=== PATIENT | male | born 1935 | race Asian ===

== ENCOUNTER → 2016-09-09 | Outpatient (CLI) | payer OTHER ==
--- NOTE | 2016-09-09 15:59 | MR ---
MRI of the Lumbar Spine (Without Contrast) 1041 Hours Clinical Indications: Back pain. Radiculopathy. M54.16. Technique: Sagittal and axial T1 and T2 and sagittal STIR MR sequences of the lumbar spine without contrast. Axial imaging from T10 through S1. Findings: Lumbar vertebral bodies are of normal height without compression fractures. Conus medulla ris appears normal and ends at moderate thoracolumbar dextroscoliosis. T10-T11: Severe degenerative disk disease with severe disk space narrowing, degenerative retrolisthes is, circumferential disk bulge and osteophytes, and mild bilateral facet arthropathy resulting in mil d central canal stenosis and at least moderate bilateral neural foraminal stenosis only partially vis ualized. T11-T12: Severe degenerative disk disease with moderate loss of disk height, degenerative anterolisth esis, and severe bilateral facet arthropathy resulting in moderate central canal stenosis and moderat e bilateral neural foraminal stenosis, right worse than left. T12-L1: Moderate degenerative disk disease with circumferential disk bulge and osteophytes and mild b ilateral facet arthropathy resulting in degenerative grade 1 retrolisthesis, mild central canal steno sis, and moderate bilateral neural foraminal stenosis. L1-L2: Moderate degenerative disk disease with ventral osteophytes and mild bilateral facet arthropat hy resulting in mild to moderate left neural foraminal stenosis without central canal stenosis or rig ht neural foraminal stenosis. L2-L3: Moderate degenerative disk disease with circumferential disk bulge and osteophytes asymmetrica lly more prominent toward the left, possibly prior left laminectomy, and mild right facet arthropathy resulting in mild central canal stenosis, moderate to severe left neural foraminal stenosis, and mil d to moderate right neural foraminal stenosis. L3-L4: Moderate degenerative disk disease with circumferential disk bulge and osteophytes, severe rig ht facet arthropathy, moderate left facet arthropathy, and posterior interspinous hardware resulting in moderate central canal stenosis, right lateral recess stenosis, moderate to severe right neural fo raminal stenosis, and mild to moderate left neural foraminal stenosis. L4-L5: Moderate degenerative disk disease and circumferential disk bulge and osteophytes, previous le ft laminectomy, and mild bilateral facet arthropathy resulting in severe right neural foraminal steno sis and mild left neural foraminal stenosis. No central canal stenosis. L5-S1: Mild degenerative disk disease with circumferential disk bulge and osteophytes and moderate bi lateral facet arthropathy with posterior interspinous hardware resulting in moderate to severe bilate ral neural foraminal stenosis without central canal stenosis. Impressions 1. Multilevel moderate degenerative disk disease with disk bulges and facet arthropathy, dextroscolio sis, from T10-T11 through L5-S1 resulting in mild to moderate central canal stenosis, worse at T10-T1 1, L3-L4, and multilevel moderate to severe bilateral neural foraminal stenosis, worse on the right a t L3-L4, L4-L5, and L5-S1, especially L4-L5, and on the left at L2-L3. 2. Please see above findings at specific disk levels.
== END ==
LOC: FIMAGING 08:59
PROVIDERS: ATTEND Physician Assistant Medical
DX: M51.36 Other intervertebral disc degeneration, lumbar region (principal); M51.34 Other intervertebral disc degeneration, thoracic region; M51.35 Other intervertebral disc degeneration, thoracolumbar region; M51.26 Other intervertebral disc displacement, lumbar region; M51.24 Other intervertebral disc displacement, thoracic region; M51.25 Other intervertebral disc displacement, thoracolumbar region; M48.06 Spinal stenosis, lumbar region; M48.04 Spinal stenosis, thoracic region; M99.72 Connective tissue and disc stenosis of intervertebral foramina of thoracic region; M99.73 Connective tissue and disc stenosis of intervertebral foramina of lumbar region; M41.85 Other forms of scoliosis, thoracolumbar region

== ENCOUNTER → 2016-09-14 | Outpatient (CLI) | payer OTHER | LOC: BHFA 09:15 | PROVIDERS: ATTEND Internal Medicine Cardiovascular Disease | DX: I48.91 Unspecified atrial fibrillation (principal) ==

== ENCOUNTER → 2016-09-28 | Outpatient (CLI) | payer OTHER | LOC: BHFA 09:00 | PROVIDERS: ATTEND Internal Medicine Cardiovascular Disease | DX: R06.02 Shortness of breath (principal) ==

== ENCOUNTER → 2017-01-02 | Outpatient (CLI) | payer OTHER | LOC: FIMAGING 11:23 → EDSTATUS 11:25 | PROVIDERS: ATTEND Internal Medicine Cardiovascular Disease | DX: Z09 Encounter for follow-up examination after completed treatment for conditions other than malignant neoplasm (principal); Z95.0 Presence of cardiac pacemaker ==

== ENCOUNTER → 2017-03-22 | Outpatient (CLI) | payer OTHER | LOC: FIMAGING 12:32 | PROVIDERS: ATTEND Internal Medicine Hematology & Oncology | DX: N28.1 Cyst of kidney, acquired (principal); N39.0 Urinary tract infection, site not specified ==

== ENCOUNTER → 2017-04-20 | Outpatient (CLI) | payer OTHER | LOC: BHFA 14:00 | PROVIDERS: ATTEND Internal Medicine Cardiovascular Disease | DX: I48.91 Unspecified atrial fibrillation (principal) ==

== ENCOUNTER → 2017-08-16 | Outpatient (CLI) | payer OTHER | LOC: BHFA 08:30 | PROVIDERS: ATTEND Internal Medicine Cardiovascular Disease | DX: Z51.11 Encounter for antineoplastic chemotherapy (principal) ==

== ENCOUNTER 2017-08-17 14:23 | Inpatient (IN) | payer OTHER ==
--- NOTE | 2017-08-17 15:56 | EDPHY ---
H & P Time Seen by Provider: 08/17/17 15:56 HPI/ROS: Chief complaint. Cardiac issues HPI. Patient is an 82-year-old male with history of [place] strong moves lymphoma with exertional shortness of breath for the last 4-5 days. He had last chemotherapy 2 days ago and there is some evidence for tumor lysis syndrome. However the patient has an elevated BNP that is new as well as a new heart murmur. He had an echo yesterday but we do not know the results of that. Denies fever. However exertional shortness of breath and 89% saturation on room air. No chest discomfort. No unusual leg pain or swelling. No fever or cough. No similar symptoms previously. Patient has now been on Lasix the last 2 days. ROS Constitutional. no fever/chills, no weakness Eyes. no problems with vision ENT. no sore throat, no nasal drainage Cardiovascular. no chest pain Respiratory. Exertional shortness of breath Abdominal. no abdominal pain, no nausea/vomiting, no diarrhea . no problems urinating MS. no calf pain/swelling, no neck/back pain, no joint pain Skin. no rash Lymph. no swollen glands Neuro. no headache, no dizziness, no difficulty walking or with speech Past Medical/Surgical History: Past medical history is significant for non-Hodgkin's lymphoma, sciatica,, atrial fibrillation, chronic renal insufficiency, rheumatoid arthritis, [place] strong move mac grow globular anemia, pacer, rectal cancer Social History: , nonsmoker, no alcohol Smoking Status: Former smoker Physical Exam: General Appearance: Alert well-developed male mild distress vital signs significant for O2 saturation 91% on room air Eyes: Pupils equal and round no pallor or injection. ENT, Mouth: Mucous membranes are moist. Respiratory: Rales in the lung bases Cardiovascular: Regular rate and rhythm with 1/6 systolic decrescendo murmur Gastrointestinal: Abdomen is soft and nontender, no masses, bowel sounds normal. Neurological: Awake and alert, sensory and motor exams grossly normal. Skin: Warm and dry, no rashes. Musculoskeletal: Neck is supple nontender. Extremities symmetrical, full range of motion. Psychiatric: Patient is oriented X 3, there is no agitation. Constitutional: Initial Vital Signs Temperature (C) 36.9 C 08/17/17 14:30 Heart Rate 76 08/17/17 14:30 Respiratory Rate 20 08/17/17 14:30 Blood Pressure 125/67 H 08/17/17 14:30 O2 Sat (%) 91 L 08/17/17 14:30 O2 Delivery Mode Room Air Allergies/Adverse Reactions: sulfacetamide [From Sulfamide] Allergy (Verified 08/17/17 14:28) Home Medications: Medication Instructions Recorded Aspirin [Aspirin 81mg (*)] 81 mg PO HS 04/01/13 Ranitidine HCl [Ranitidine HCl 150 150 mg PO BID PRN 04/01/13 mg] Diphenoxylate HCl/Atrop Sulf 1 tab PO QID PRN 11/23/13 [Lomotil Tab (*)] Ferrous Sulfate [Ferrous Sulf 325 325 mg PO DAILY 11/23/13 MG (*)] Hydrocodone/APAP 5/325 [[place] 1 tab PO Q6 PRN 11/23/13 5/325 (*)] Loperamide HCl [Imodium 2 mg (*)] 2 mg PO PRN PRN 11/23/13 Simvastatin [Zocor 10 mg] 10 mg PO HS 11/23/13 Testosterone Cypionate 200 mg IM Q14D@09 11/23/13 Cholecalciferol (Vitamin D3) 5,000 unit PO DAILY 07/07/15 [Vitamin D3] Temazepam [Restoril 15 MG (*)] 15 mg PO HS PRN 07/07/15 Rivaroxaban [Xarelto 15mg (*)] 15 mg PO DAILY #30 tab 07/09/15 Sotalol HCl [Betapace 80 MG (*)] 120 mg PO BID #60 tab 07/09/15 Allopurinol 08/17/17 Lasix 08/17/17 Medical Decision Making - Diagnostics EKG Interpretation: EKG interpreted by me shows an atrial paced rhythm with normal axis. QRS shows some inferior lead T-wave inversion. No significant ST elevation or depression. The rate is 72 Imaging Results: Imaging Impressions Chest X-Ray 08/17/17 16:23 Impression: 1. Mild airways disease/bronchitis. 2. Borderline cardiomegaly unchanged. No failure or effusion. One-view chest x-ray consistent with mild CHF and airway disease. Procedures: IV normal saline. Review of records. Calling Cardiology to find out echo results from yesterday I consulted Cardiology and got the results of the echo from yesterday which shows normal global left ventricular systolic function with an EF of 61%. Aortic fell, mitral valve are normal. no pericardial effusion ED Course/Re-evaluation: Re-evaluation 5:25 p.m.. Patient, his , and I discussed imaging and lab results. We discussed treatment plan including recommendation for admission. They expressed understanding and agreed I consulted and discussed case Dr. Stinson, hospitalist who agrees to the admission I consulted discussed case with Cardiology and reviewed the ultrasound Differential Diagnosis: Patient has exertional dyspnea and evidence for CHF. Unlikely the patient has pulmonary embolus as he is on Xarelto with an elevated INR. I have also considered pneumonia. Apparently new onset heart murmur but echo shows normal mitral and aortic valves. No evidence for pericarditis or pericardial effusion - Data Points Laboratory Results: Laboratory Results 08/17/17 16:30 08/17/17 16:30 08/17/17 08/17/17 08/17/17 16:30 16:30 16:30 WBC 4.54 10^3/uL 10^3/uL (3.80-9.50) RBC 4.00 10^6/uL L 10^6/uL (4.40-6.38) Hgb 10.3 g/dL L g/dL (13.7-17.5) Hct 32.7 % L % (40.0-51.0) MCV 81.8 fL fL (81.5-99.8) MCH 25.8 pg L pg (27.9-34.1) MCHC 31.5 g/dL L g/dL (32.4-36.7) RDW 16.8 % H % (11.5-15.2) Plt Count 197 10^3/uL 10^3/uL (150-400) MPV 8.8 fL fL (8.7-11.7) Neut % (Auto) 74.3 % H % (39.3-74.2) Lymph % (Auto) 11.9 % L % (15.0-45.0) Gage % (Auto) 11.0 % % (4.5-13.0) Eos % (Auto) 2.0 % % (0.6-7.6) Baso % (Auto) 0.4 % % (0.3-1.7) Nucleat RBC Rel Count 0.0 % % (0.0-0.2) Absolute Neuts (auto) 3.37 10^3/uL 10^3/uL (1.70-6.50) Absolute Lymphs (auto) 0.54 10^3/uL L 10^3/uL (1.00-3.00) Absolute Monos (auto) 0.50 10^3/uL 10^3/uL (0.30-0.80) Absolute Eos (auto) 0.09 10^3/uL 10^3/uL (0.03-0.40) Absolute Basos (auto) 0.02 10^3/uL 10^3/uL (0.02-0.10) Absolute Nucleated RBC 0.00 10^3/uL 10^3/uL (0-0.01) Immature Gran % 0.4 % % (0.0-1.1) Immature Gran # 0.02 10^3/uL 10^3/uL (0.00-0.10) PT 44.4 SEC H SEC (12.0-15.0) INR 4.80 H (0.83-1.16) Sodium 140 mEq/L mEq/L (134-144) Potassium 5.1 mEq/L mEq/L (3.5-5.2) Chloride 108 mEq/L mEq/L (97-110) Carbon Dioxide 19 mEq/l L mEq/l (22-31) Anion Gap 13 mEq/L mEq/L (8-16) BUN 55 mg/dL H mg/dL (7-23) Creatinine 2.1 mg/dL H mg/dL (0.7-1.3) Estimated GFR 30 Glucose 113 mg/dL H mg/dL (70-100) Calcium 8.3 mg/dL L mg/dL (8.5-10.4) Troponin I 0.030 ng/mL ng/mL (0.000-0.034) NT-Pro-B Natriuret Pep 6770 pg/mL H pg/mL (0-450) Departure - Departure Disposition: [facility] Inpatient Acute Clinical Impression: Dyspnea Qualifiers: Dyspnea type: dyspnea on exertion Qualified Code(s): R06.09 - Other forms of dyspnea Condition: Fair Referrals: Patient,NotPresent [Primary Care Provider] - As per Instructions
--- NOTE | 2017-08-17 16:39 | CPEKG ---
Heart Rate: 72 RR Interval: 833 P-R Interval: 236 QRSD Interval: 84 QT Interval: 428 QTC Interval: 469 QRS [place]: 38 T Wave [place]: -46 EKG Severity - ABNORMAL ECG - EKG Impression: ATRIAL-PACED RHYTHM EKG Impression: BORDERLINE T ABNORMALITIES, INFERIOR LEADS Electronically Signed By: Mumtaz Hamilton 17-Aug-2017 20:54:45
[2017-08-17 16:41] LABS: % IMMATURE GRANULYOCYTES 0.4 % (0.0-1.1); ABSOLUTE IMMATURE GRANULOCYTES 0.02 10^3/uL (0.00-0.10); ADD DIFF? NO; ADD MORPH? NO; ADD SCAN? NO; ATYPICAL LYMPHOCYTE FLAG 0 (0-99); FRAGMENT RBC FLAG 60 (0-99); HEMATOCRIT 32.7 % (40.0-51.0); HEMOGLOBIN 10.3 g/dL (13.7-17.5); LEFT SHIFT FLG 0 (0-99); LIPEMIA HEMOLYSIS FLAG 80 (0-99); MEAN CELL HEMOGLOBIN 25.8 pg (27.9-34.1); MEAN CELL HEMOGLOBIN CONCENTR. 31.5 g/dL (32.4-36.7); MEAN CELL VOLUME 81.8 fL (81.5-99.8); MEAN PLATELET VOLUME 8.8 fL (8.7-11.7); PLATELET CLUMPS FLAG 10 (0-99); PLATELET COUNT 197 10^3/uL (150-400); RED CELL DISTRIBUTION WIDTH 16.8 % (11.5-15.2)
[2017-08-17 16:58] LABS: INR 4.8 (0.83-1.16); PROTIME(PATIENT) 44.4 SEC (12.0-15.0)
[2017-08-17 17:13] LABS: ANION GAP 13 mEq/L (8-16); CALCIUM 8.3 mg/dL (8.5-10.4); CARBON DIOXIDE 19 mEq/l (22-31); CHLORIDE 108 mEq/L (97-110); CREATININE 2.1 mg/dL (0.7-1.3); GLOMERULAR FILTRATION RATE 30; GLUCOSE 113 mg/dL (70-100); POTASSIUM 5.1 mEq/L (3.5-5.2); SODIUM 140 mEq/L (134-144)
[2017-08-17] MEDS ORDERED: ACETAMINOPHEN 325 MG TAB PO PRN (17:36)
[2017-08-17] MEDS ORDERED: ONDANSETRON 4 MG/2 ML VIAL IVP PRN (17:36)
[2017-08-17] MEDS ORDERED: ONDANSETRON DISINTEGRATING 4 MG TAB PO PRN (17:36)
[2017-08-17] MEDS ORDERED: NS 1,000 ML IV SCH (19:15)
[2017-08-17] MEDS ORDERED: ALBUTEROL 200 PUFFS/18 GM MDI IH PRN (19:20)
[2017-08-17] MEDS ORDERED: HYDROCODONE/APAP 5/325 TAB PO PRN (19:20)
--- NOTE | 2017-08-17 19:58 | GHP ---
[f rep st] HISTORY AND PHYSICAL DATE OF ADMISSION: 08/17/2017 CHIEF COMPLAINT: Dyspnea. HISTORY OF PRESENT ILLNESS: An 82-year-old male with history of Waldenstrom lymphoma, last chemo Monday, Monday; atrial fibrillation, on anticoagulation, CKD, who presents from Oncology Clinic with dyspnea. He has noticed these symptoms for the past 2 weeks but worse over the last few days. This occurs only with walking. He had a cold in July and was treated with antibiotics at that time. The cough is persistent. He states that he is achy and more fatigued. He did have significant diarrhea yesterday and today to the point where he had to wear Depends. No headaches. No dysuria. He was started on Lasix 20 mg daily yesterday. He had an echocardiogram done on 08/16/2017 that was normal. No evidence of effusion. Normal LV function. His oxygen sats dropped to 87% on room air. Denies any chest pain. Exercises a couple times a week without any chest pain or shortness of breath up until the last couple of weeks. REVIEW OF SYSTEMS: I completed a 10-point review of systems, negative except as noted in HPI. PAST MEDICAL HISTORY: 1. 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 2. Atrial fibrillation on Coumadin. 3. History of tachy-phoebe syndrome status post pacemaker. 4. GERD. 5. CKD. Baseline creatinine is 1.8-1.9. 6. History of non-Hodgkin's lymphoma. PAST SURGICAL HISTORY: Shoulder surgery, TURP x2, laminectomy x2, right inguinal hernia repair, partial colectomy. 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 Lives here in [place] with his . Occasional wine. Smoked remotely 10 years, 1 pack a day. FAMILY HISTORY: Father in an accident. Mother with multiple myeloma. ALLERGIES: Sulfa. HOME MEDICATIONS: Restasis eyedrops, albuterol 1-2 puffs q.4 hours p.r.n., Synthroid 50 mcg daily. Dapsone 100 mg daily, acyclovir 400 mg twice daily, Coumadin 1.25 mg Monday, Monday, Monday, 2.5 every other day. Sotalol 80 mg twice daily, simvastatin 10 at bedtime, ranitidine 150 twice daily p.r.n., loperamide p.r.n., [place] as needed, Restoril, iron, Lomotil, vitamin D3, aspirin , Lasix 20 mg daily. Allopurinol 100 mg daily. PHYSICAL EXAMINATION: VITAL SIGNS: Temperature 36.9, blood pressure 125/67, heart rate 76, respirations 20, 91% on room air, 99 on 2 L. GENERAL: Well- appearing male, lying in bed, mildly tired. HEENT: PERRLA, dry mucous membranes. CV: Regular rate and rhythm, soft murmur right lower sternal border. CXR is personally reviewed by me. Pacemaker. No effusion or opacity. EKG: personally reviewed by me, atrial paced. LABS: Sodium 140, potassium 5.1, chloride 108, carbon dioxide 19, BUN 55, creatinine 2.1, glucose 113, calcium 8.3. Troponin 0.03. BNP is 6770, up from 1979 on 08/14/2017. INR is 4, PT is 44. WBC 4, hemoglobin 10, hematocrit 32, platelets 197. ASSESSMENT AND PLAN: 1. Dyspnea: new over the last 2 weeks. Actually appears dry on exam. Normal echo at [facility] yesterday. No evidence of ischemia on EKG or troponin. Will repeat both these, monitor on telemetry; repeat troponin. No evidence of pneumonia, but will check a viral PCR given immunosuppression. Consider pulmonary embolism, but not tachycardia and is supratherapeutic on his Coumadin. Can also consider dyspnea as an anginal equivalent. Per patient report, he had a treadmill stress test within the last few months. I have been unable to locate this in [place]. Will contact [facility] in morning to confirm. If not done, then would consider stress if other evaluation negative. 2. Atrial fibrillation: Rate controlled on sotalol. Hold Coumadin with a supratherapeutic INR. 3. History of tachy-phoebe syndrome, pacemaker. 4. Chronic kidney disease: Creatinine is up to 2.1 from 1.9. Dry on exam and h/ o decreased p.o. intake and diarrhea. Give small amount IVFs. Repeat in the morning. 5. Gastroesophageal reflux disease, ranitidine. 6. Diet: Regular. 7. Deep venous thrombosis prophylaxis. He is on Coumadin. DISPOSITION: Patient warrants observation admission given hypoxia, warranting serial labs and possible cardiac evaluation if stress not already done. /[id number]/MODL MTDD
[2017-08-17] MEDS: cycloSPORINE 0.05% 30 DROPERETTE/BOX EACHEYE SCH (20:00)
[2017-08-17] MEDS: SOTALOL HCL 80 MG TAB PO SCH (20:10)
[2017-08-17] MEDS: TEMAZEPAM 15 MG CAP PO PRN (20:11)
[2017-08-17] MEDS: ACYCLOVIR 400 MG TAB PO SCH (20:11)
[2017-08-17] MEDS: PRAVASTATIN SODIUM 20 MG TAB PO SCH (20:11)
[2017-08-17] MEDS: ASPIRIN 81 MG CHEWABLE TAB PO SCH (20:11)
[2017-08-17] MEDS ORDERED: FAMOTIDINE 20 MG TAB PO PRN (21:00)
--- NOTE | 2017-08-18 04:14 | GCON ---
[f rep st] CONSULTATION HEMATOLOGY ONCOLOGY CONSULTATION NOTE REASON FOR CONSULTATION: Patient with history of Waldenstrom macroglobulinemia , admitted with increasing dyspnea, fatigue, hypoxia. HISTORY OF PRESENT ILLNESS: Shahid Jett is a 82-year-old who currently being treated for Waldenstrom macroglobulinemia by Dr. Soto. He was seen in the office today with symptoms of increasing fatigue, dyspnea and hypoxia. The patient was admitted for further evaluation. His oncology history is notable for being diagnosed with a stage II colon cancer in 2005. He was given 12 cycles of full FOLFOX and has had a residual peripheral neuropathy secondary to that. He was then diagnosed with an anal carcinoma and treated with mitomycin, 5-FU and radiation in 2008 and has been free of disease since. He was diagnosed with Waldenstrom macroglobulinemia in June 2008. 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 He has required treatment intermittently for it over the years, primarily with single agent rituximab. He did a short course of ibrutinib in 2014. More recently, due to symptoms of increasing fatigue and new anemia, he was treated for what was thought to be symptomatic to the Waldenstrom's. Bone marrow biopsy in July showed a CD5/CD10 negative clonal B-cell population which was kappa restricted, encompassing 40% of the marrow. There was a clonal plasma cell population as well which was kappa restricted 7% to 8% of the marrow. The marrow was hypercellular at 70%. There was no evidence of amyloid. The PCR on peripheral blood was positive for MYD88 mutation which correlates with the diagnosis of Waldenstrom's. A recent serum viscosity was normal at 1.2. PET CT on August 09 showed enlarging splenomegaly and description of edema in the anterior superior mediastinal fat, right anterior chest wall, right retrocrural space and mesentery, which had some low-level PET uptake of uncertain significance. There was interval development of small bilateral pleural effusions. The patient was started on treatment with rituximab, carfilzomib, with dexamethasone on August 14. He received treatment on the and the . Since receiving treatment, he states he has just felt "horrible. He has been short of breath, extremely weak. He has not been able to do any of his usual exercise. He has baseline renal insufficiency with a creatinine of 1.8. In the office today, he was hypoxic with an O2 sat of 86%. LDH on August 11 was normal, and was elevated today at 860. Uric acid was 9.5 on August 11, and is now 12.1. Creatinine was up to 2.4. A CBC was otherwise unremarkable. Dr. Soto felt he heard a new systolic murmur. The patient had an echocardiogram yesterday and those results are still pending. The patient is admitted for further evaluation of hypoxia, dyspnea, increasing weakness, worsening renal function. PAST MEDICAL HISTORY: Colon cancer per HPI. Anal cancer per HPI. History of atrial fibrillation with pacemaker. 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 PAST SURGICAL HISTORY: Prior laminectomy, TURP, colectomy. FAMILY HISTORY: Noncontributory other than mother dying of multiple myeloma. SOCIAL HISTORY: He is . He has a son from his first marriage. 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 He drinks alcohol occasionally. REVIEW OF SYSTEMS: 10-point review of systems is negative other than HPI. PHYSICAL EXAM: GENERAL: He is a fatigued-appearing elderly male lying comfortably in bed. VITAL SIGNS: Blood pressure is 120/72, pulse 77, respires 15, temp 97.6, O2 sat 86% on room air. HEENT: Pupils are equal. Sclerae anicteric. LUNGS: Clear to auscultation without crackles. HEART: Regular rate with soft systolic murmur. ABDOMEN: Soft, nontender. EXTREMITIES: No edema. LABORATORY DATA: Hemoglobin 10.8, creatinine 2.4, alk phos 221, AST 88, ALT 97 , LDH 860, uric acid 12.1. IMPRESSION: This is an 82-year-old male with a complicated past medical history , currently receiving treatment for what is felt to be progressive Waldenstrom macroglobulinemia. The patient received his first cycle of treatment 3 days ago , and labs suggest that he is experiencing some tumor lysis. This would be unusual for Waldenstrom's. Recent serum viscosity is normal, suggesting that viscosity issues are not contributing to his current symptoms. Some of his symptoms are suggestive also of either congestive heart failure and/or volume overload. I am unclear as to the significance of the description of the recent PET with mediastinal and retrocrural edema. The patient will be admitted to telemetry. Will get the copy of the echocardiogram from yesterday. He will continue on allopurinol and consideration could be given to giving him 1 dose of rasburicase if uric acid continues to rise or renal function worsens. Hyperuricemia may be contributing in part to the renal insufficiency and/or a component of prerenal. Previous bone marrow did not demonstrate any evidence of amyloidosis. We will see if there is any evidence of that on the echocardiogram. SPEP and light chains will be checked as well. Will continue to follow along with you. /[id number]/MODL MTDD
[2017-08-18 05:29] LABS: % IMMATURE GRANULYOCYTES 0.6 % (0.0-1.1); ABSOLUTE IMMATURE GRANULOCYTES 0.03 10^3/uL (0.00-0.10); ADD DIFF? NO; ADD MORPH? NO; ADD SCAN? NO; ATYPICAL LYMPHOCYTE FLAG 50 (0-99); FRAGMENT RBC FLAG 0 (0-99); HEMATOCRIT 31.8 % (40.0-51.0); HEMOGLOBIN 9.5 g/dL (13.7-17.5); LEFT SHIFT FLG 0 (0-99); LIPEMIA HEMOLYSIS FLAG 70 (0-99); MEAN CELL HEMOGLOBIN 24.5 pg (27.9-34.1); MEAN CELL HEMOGLOBIN CONCENTR. 29.9 g/dL (32.4-36.7); MEAN PLATELET VOLUME 9.2 fL (8.7-11.7); PLATELET CLUMPS FLAG 0 (0-99); PLATELET COUNT 155 10^3/uL (150-400); RED BLOOD CELL COUNT 3.88 10^6/uL (4.40-6.38); RED CELL DISTRIBUTION WIDTH 16.9 % (11.5-15.2)
[2017-08-18] MEDS: LEVOTHYROXINE 50 MCG TAB PO SCH (05:33)
[2017-08-18 05:45] LABS: INR 3.88 (0.83-1.16); PROTIME(PATIENT) 37.7 SEC (12.0-15.0)
[2017-08-18 05:48] LABS: ALANINE AMINOTRANSFERASE 94 IU/L (21-72); ALBUMIN 2.9 g/dL (3.5-5.0); ALKALINE PHOSPHATASE 217 IU/L (38-126); ANION GAP 9 mEq/L (8-16); ASPARTATE AMINOTRANSFERASE 64 IU/L (17-59); BILIRUBIN,TOTAL 0.5 mg/dL (0.1-1.4); CARBON DIOXIDE 24 mEq/l (22-31); CHLORIDE 106 mEq/L (97-110); CREATININE 1.9 mg/dL (0.7-1.3); GLOMERULAR FILTRATION RATE 34; GLUCOSE 88 mg/dL (70-100); LACTATE DEHYDROGENASE 701 IU/L (313-618); POTASSIUM 4.8 mEq/L (3.5-5.2); SODIUM 139 mEq/L (134-144); TOTAL PROTEIN 7.2 g/dL (6.3-8.2); URIC ACID 11.3 mg/dL (3.5-8.5)
[2017-08-18] MEDS: ACYCLOVIR 400 MG TAB PO SCH ×2 (08:49→21:15)
[2017-08-18] MEDS: ALLOPURINOL 100 MG TAB PO SCH (08:49)
[2017-08-18] MEDS: SOTALOL HCL 80 MG TAB PO SCH ×2 (08:50→21:15)
[2017-08-18] MEDS: DAPSONE 100 MG TAB PO SCH (08:50)
[2017-08-18] MEDS: CHOLECALCIFEROL VIT D3 2,000 UNITS TAB/CAP PO SCH (08:50)
[2017-08-18] MEDS: FERROUS SULFATE 325 MG TAB PO SCH (08:50)
[2017-08-18] MEDS: cycloSPORINE 0.05% 30 DROPERETTE/BOX EACHEYE SCH ×2 (09:52→22:02)
--- NOTE | 2017-08-18 10:02 | HOSPPROG ---
Hospitalist Progress Note Assessment/Plan: Dyspnea with mild hypoxemia - On 2 LPM. Note BNP elevated >6K, most recently was <2K, though difficult to interpret with CKD and he does not appear volume overloaded. Discussed with cards, had limited echo recently. Last stress test was exercise treadmill in 09/2016, neg for ischemia. Trop neg x2, non-specific T wave changes on EKG (personally reviewed and interpreted). Baseline weight ~ 70kg. Also note airway dz/bronchitis picture on CXR with recent URI. Resp path panel neg. Unclear if this could be anginal equivalent or residual URI / bronchitis picture. -trial nebs -complete echo today - right heart failure, seems new -considered PE with new RHF, though seems less likely with anti-coagulated status, can't have CTPA with elevated Cr. Will check LE U/S. -cards to consult Pulmonary hypertension - new since 09/2016 echo, RSVP 82. Potential etiologies include underlying lung dz (?h/o restrictive dz on PFT's). Doubt underlying thromboembolic dz with supratherapeutic INR and neg LE u/s. Less likely cause could be a myeloproliferative disorder. With his h/o lymphoma, will d/w pulm. -will do bedside spirometry -consider pulm consult depending on bedside PFT results CKD - Baseline Cr 1.6-1.8, now 2.1 (trending down). Elevated LFT's - unclear etiology, ?hypoperfusion with new right HF. -send hepatitis panel -trend lft's A fib - Rate controlled on Sotalol. INR supratherapeutic. -hold coumadin, pharmacy to dose going forward Tachy/phoebe syndrome s/p pacer Waldenstrom lymphoma with TLS - recent chemo and elevated uric acid noted, trending down -cont allopurinol -check phos -oncology following Full code DVT PPLX - high risk, JESSICA Dispo - cont inpt Subjective: Pt feels fine. Has had some episodes of SOB, but not particulary SOB at this time. Denies CP. No fevers. No cough. No LE edema. Objective: Vital Signs Temp Pulse Resp BP Pulse Ox 36.8 C 74 16 106/62 94 08/18/17 08:05 08/18/17 08:50 08/18/17 08:05 08/18/17 08:05 08/18/17 08:05 Microbiology 08/17/17 20:35 Respiratory Panel (PCR) - Final Nasal, Sinus - Swab No Organism Detected Laboratory Results 08/18/17 04:11 08/18/17 04:11 08/17/17 08/18/17 08/19/17 05:59 05:59 05:59 Intake Total 400 Balance 400 PT 37.7 SEC (12.0-15.0) H 08/18/17 04:11 INR 3.88 (0.83-1.16) H 08/18/17 04:11 - Physical Exam Constitutional: no apparent distress Eyes: PERRL Ears, Nose, Mouth, Throat: moist mucous membranes Cardiovascular: regular rate and rhythym Respiratory: no respiratory distress, clear to auscultation Gastrointestinal: normoactive bowel sounds, soft, non-tender abdomen Skin: warm Musculoskeletal: full muscle strength Neurologic: AAOx3 Psychiatric: interacting appropriately ICD10 Worksheet Patient Problems: Problems Problem Status Onset Dyspnea Acute Anxiety Acute Arrhythmia, ok Acute Atrial fibrillation and flutter Acute CHF (congestive heart failure) Acute Hypoxia Acute Pulmonary edema Acute Chronic kidney disease (CKD) stage G3a/A1, moderately decreased glomerular filtration rate (GFR) between 45-59 mL/min/1.73 square meter and albuminuria creatinine ratio less than 30 mg/g Chronic Malignant lymphoma, 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
[2017-08-18] MEDS: IPRATROPIUM/ALBUTEROL 3 ML DEYVIAL IH SCH ×4 (11:27→22:39)
--- NOTE | 2017-08-18 12:29 | PDMN ---
Medical Necessity Medical necessity: est los>2mn for dyspnea w/hypoxia, CKD, elevated lft's, supratherapeutic INR; admit for serial labs, supplemental O2, cardiology and onc consults; comorbid lymphoma w/recent chemo, afib, CKD; per order 08/17/17 and confirmation of status per progress note 08/18/17
--- NOTE | 2017-08-18 15:03 | ECHO ---
[email or web address] [address] [address] Main: [phone] Fax: Transthoracic Echocardiogram Name: IESHA JEAN-BAPTISTE MR#: [id number] Study Date: 08/18/2017 Study Time: 10:38 AM Date of : 1935 Age: 82 year(s) Height: ( ) Weight: ( ) BSA: Gender: Male Examination: Echo Indication: Cardiac: dyspnea, acute heart failure Image Quality: Adequate Contrast: Requested by: Sarika Lucia BP: 106 mmHg/62 mmHg Heart Rate: Rhythm: Normal sinus rhythm Indication: Cardiac: dyspnea, acute heart failure Procedure 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 Normal global systolic LV function. EF is 72 %. No regional wall motion abnormality. Mildly dilated right ventricle. Moderately reduced RV function. There is a pacemaker lead noted in the right ventricle. The right atrium is moderately dilated. Mild mitral valve regurgitation is present. The aortic valve is tri-leaflet. Mild aortic cusp calcification is noted. Moderate to severe tricuspid valve regurgitation. Right ventricular systolic pressure measures 82mmHg. The pulmonary artery pressure is severely increased. The IVC is moderately dilated. Measurements: Chambers Valvular Assessment AV/MV Valvular Assessment TV/PV Normal Normal Normal Name Value Range Name Value Range Name Value Range Ao Iliana (MM): 3.0 cm (2.2 cm-3.7 AV Vmax: 1.38 m/s (1 m/s-1.7 TR Vmax: 4.08 mm/s ( - ) cm) m/s) TR PGmax: 67 mmHg ( - ) IVSd (2D): 1.2 cm (0.6 cm-1.1 AV maxP mmHg ( - ) syst. PAP: 82 mmHg ( - ) cm) LVOT Vmax: 0.99 m/s (0.7 m/s-1.1 PV Vmax: 0.66 m/s (0.6 m/s-0.9 LVDd (2D): 4.1 cm (4.2 cm-5.9 m/s) m/s) cm) MV E Vmax: 0.78 m/s ( - ) PV PGmax: 2 mmHg ( - ) LVDs (2D): 2.5 cm (2.1 cm-4 MV A Vmax: 0.58 m/s ( - ) cm) MV E/A: 1.34 ( - ) LVPWd (2D): 1.1 cm (0.6 cm-1 cm) Patient: IESHA JEAN-BAPTISTE Study Date: 08/18/2017 Page 1 of 2 10:38 AM LVEF (BP): 72 % (>=55 %) RVDd(2D): 4.2 cm (1.9 cm-3.8 cmmm) Continued Measurements: Chambers Valvular Assessment AV/MV Valvular Assessment TV/PV Name Value Name Value Name Value LADs Lon.0 cm MV DecTime: 246 m/s CVP (est.): 15 mmHg LA Area: 20.9 cm2 MV E' Septal: 0.06 m/s LA Volume: 69 ml MV E/E' Septal: 12.40 TAPSE: 1.6 cm MV E/E' Lateral: 9.30 RA Area: 23.0 cm2 Additional Vessels Name Value Ao Ascendin.4 cm Findings: Left Ventricle: Normal size left ventricle. Borderline concentric LV hypertrophy. Normal global systolic LV function. EF is 72 %. No regional wall motion abnormality. Normal diastolic LV function. Right Ventricle: Mildly dilated right ventricle. Moderately reduced RV function. There is a pacemaker lead noted in the right ventricle. Left Atrium: The left atrium is normal in size. Right Atrium: The right atrium is moderately dilated. There is a pacemaker lead noted in the right atrium. Mitral Valve: The mitral valve is normal in appearance and function. There is mild thickening of the mitral valve leaflets. No mitral stenosis is present. Mild mitral valve regurgitation is present. Aortic Valve: The aortic valve is normal in appearance and function. The aortic valve is tri-leaflet. Mild aortic cusp calcification is noted. There is no significant aortic valve regurgitation. No aortic valve stenosis is present. Tricuspid Valve: The tricuspid valve is normal in appearance and function. Moderate to severe tricuspid valve regurgitation. Right ventricular systolic pressure measures 82mmHg. The pulmonary artery pressure is severely increased. Pulmonic Valve: The pulmonic valve is normal in appearance and function. Mild pulmonic valve regurgitation is noted. Aorta: The aorta is normal. Normal size aortic root measuring 3.0 cm. Normal size ascending aorta measuring 3.4 cm. IVC: The IVC is moderately dilated. There is less than 50% respiratory excursion. Pericardium: No pericardial effusion. Left side pleural effusion. (No Signature Object) Patient: IESHA JEAN-BAPTISTE Study Date: 08/18/2017 Page 2 of 2 10:38 AM [id number]
[2017-08-18] MEDS: HEPARIN 5,000 UNIT/0.5 ML SYR SC SCH ×2 (15:23→21:13)
--- NOTE | 2017-08-18 15:28 | ASMTCMCOM ---
CM Note CM Note Notes: Chart reviewed. Patient admitted via ED with increasing SOB. He has a murmur and tests are pending. Visited with patient and his . He has a history of lymphoma. Per patient and his they have no needs at this point in time. CM to follow. Date Signed: 08/18/2017 03:28 PM Electronically Signed By:Yenny Garcia RN
--- NOTE | 2017-08-18 16:19 | PDCARCONS ---
Cardiology Consult Reason for Consult: Possible congestive heart failure. Chief Complaint: Shortness of breath. Requesting Physician: Dr. Tiffany Lucia. History of Present Illness: He is 82 years old. He is followed in our cardiology clinic by Dr. Lex Davis. His cardiac history is significant for paroxysmal atrial fibrillation, sick sinus syndrome and previous dual-chamber pacemaker implantation. He is currently treated with a combination of sotalol and is on systemic anticoagulation admitted with a therapeutic INR on Coumadin. 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 Apparently on Monday and Monday he received chemotherapy in the form of a CARD protocol. In discussing this with Oncology it is not thought that this is significantly cardiotoxic. He has been struggling with symptoms of exertional dyspnea now for at least a year. In reviewing his office notes he had complained of shortness of breath and low Nikki of last year. At that time, an MVO2 study was ordered. In reviewing that study his peak oxygen consumption was 18 with a comment regarding his pulmonary function testing that these were consistent with a possible restrictive physiology. He states that his symptoms of dyspnea have been worsening over the last year. He typically is very active individual likes to exercise regularly however has nearly completely stopped exercising due to symptoms of shortness of breath. He can only go up 1 flight of stairs before he needs to stop and catch his breath and has stopped using the elliptical driver trainer altogether. He has no associated anginal quality symptoms. Apparently he was admitted to the hospital because of an elevated brain atretic peptide which was noted by his oncologist. On arrival he was normotensive. His oxygen saturations were in the low 90s. He notes that when he is still, sitting or sleeping he has no shortness of breath. He has not had any edema. He denies orthopnea and PND. He states that he ran out of his Synthroid 1 month ago and has not been using it since. History Information - Allergies/Home Medication List Allergies/Adverse Reactions: sulfacetamide [From Sulfamide] Allergy (Verified 08/17/17 18:19) Home Medications: Aspirin [Aspirin 81mg (*)] 81 mg PO HS 04/01/13 [Last Taken 07/06/15] Ranitidine HCl [Ranitidine HCl 150 mg] 150 mg PO BID PRN 04/01/13 [Last Taken 21:00] Diphenoxylate HCl/Atrop Sulf [Lomotil Tab (*)] 1 tab PO QID PRN 11/23/13 [Last Taken 11/23/13 03:00] Ferrous Sulfate [Ferrous Sulf 325 MG (*)] 325 mg PO DAILY 11/23/13 [Last Taken 07/07/15] Hydrocodone/APAP 5/325 [[place] 5/325 (*)] 1 tab PO Q6 PRN 11/23/13 [Last Taken ] Loperamide HCl [Imodium 2 mg (*)] 2 mg PO PRN PRN 11/23/13 [Last Taken 11/23/13 03:00] Simvastatin [Zocor 10 mg] 10 mg PO HS 11/23/13 [Last Taken 07/06/15] Cholecalciferol (Vitamin D3) [Vitamin D3] 5,000 unit PO DAILY 07/07/15 [Last Taken 07/07/15] Temazepam [Restoril 15 MG (*)] 15 mg PO HS PRN 07/07/15 [Last Taken Unknown] Acyclovir [Zovirax 400 mg (*)] 400 mg PO BID 08/17/17 [Last Taken Unknown] Albuterol [Proventil Inhaler HFA (*)] 1 - 2 puffs IH Q4H PRN 08/17/17 [Last Taken Unknown] Allopurinol [Allopurinol 100 MG (*)] 100 mg PO DAILY 08/17/17 [Last Taken Unknown] Dapsone [Dapsone 100 mg (*)] 100 mg PO DAILY 08/17/17 [Last Taken Unknown] Furosemide [Lasix 20 MG (*)] 20 mg PO DAILY 08/17/17 [Last Taken Unknown] Levothyroxine [Synthroid 50 mcg (*)] 50 mcg PO DAILY06 08/17/17 [Last Taken Unknown] Sotalol HCl [Betapace 80 MG (*)] 80 mg PO BID 08/17/17 [Last Taken Unknown] Warfarin Sodium [Coumadin 2.5MG (*)] 1.25 mg PO MOWESA@08/17/17 [Last Taken Unknown] Warfarin Sodium [Coumadin 2.5MG (*)] 2.5 mg PO SUTUTHFR@08/17/17 [Last Taken Unknown] cycloSPORINE 0.05% [Restasis Opht Drops(*)] 1 drop EACHEYE BID 08/17/17 [Last Taken Unknown] I have personally reviewed and updated: family history, medical history, social history, surgical history Past Medical History: Colon cancer status post partial colectomy/chemotherapy and radiation in 2007, anal cancer in 2009 status post chemotherapy and radiation, paroxysmal atrial fibrillation, benign prostatic hypertrophy, chronic opioid abuse, erectile dysfunction, GERD, hypogonadism, hypothyroidism, fecal incontinence, insomnia, chronic renal insufficiency, [place] macroglobulinemia. - Surgical History Additional surgical history: Cataract surgery, colectomy, hernia repair, knee surgery x2, laminectomy x3, Lasix, pacemaker implantation, rectal surgery, shoulder surgery, TURP. - Family History Additional family history: At this point is noncontributory. - Social History Smoking Status: Former smoker (He quit smoking in 1968) Alcohol Use: Rarely Drug Use: None, Other (He does state that he uses a benzodiazepine to sleep every night.) Physical Exam Physical Exam: He is well-nourished, well-developed with an appropriate mood and affect. Temp Pulse Resp BP Pulse Ox 36.3 C 74 14 112/58 L 93 08/18/17 15:25 08/18/17 15:25 08/18/17 15:25 08/18/17 15:25 08/18/17 15:25 O2 (L/minute) 2 Constitutional: no apparent distress, other (He is wearing nasal cannula oxygen. ) Eyes: PERRL, anicteric sclera Ears, Nose, Mouth, Throat: moist mucous membranes Cardiovascular: regular rate and rhythym, systolic murmur (2/6 holosystolic murmur left sternal border.), JVD (Elevated to the angle of the jaw bilaterally) Peripheral Pulses: 2+: carotid (R), carotid (L) Respiratory: no respiratory distress, no rales or rhonchi, clear to auscultation , No expiratory wheeze, No inspiratory crackles Gastrointestinal: normoactive bowel sounds, soft, non-tender abdomen, no palpable masses Skin: warm, normal color Musculoskeletal: full muscle strength Neurologic: AAOx3 Psychiatric: interacting appropriately, not anxious, not encephalopathic Lab and Imaging 08/19/17 08:00 08/19/17 08:00 WBC 4.64 10^3/uL (3.80-9.50) 08/18/17 04:11 RBC 3.88 10^6/uL (4.40-6.38) L 08/18/17 04:11 Hgb 9.5 g/dL (13.7-17.5) L 08/18/17 04:11 Hct 31.8 % (40.0-51.0) L 08/18/17 04:11 MCV 82.0 fL (81.5-99.8) 08/18/17 04:11 MCH 24.5 pg (27.9-34.1) L 08/18/17 04:11 MCHC 29.9 g/dL (32.4-36.7) L 08/18/17 04:11 RDW 16.9 % (11.5-15.2) H 08/18/17 04:11 Plt Count 155 10^3/uL (150-400) 08/18/17 04:11 MPV 9.2 fL (8.7-11.7) 08/18/17 04:11 Neut % (Auto) 77.5 % (39.3-74.2) H 08/18/17 04:11 Lymph % (Auto) 10.3 % (15.0-45.0) L 08/18/17 04:11 [place] % (Auto) 9.7 % (4.5-13.0) 08/18/17 04:11 Eos % (Auto) 1.7 % (0.6-7.6) 08/18/17 04:11 Baso % (Auto) 0.2 % (0.3-1.7) L 08/18/17 04:11 Nucleat RBC Rel Count 0.0 % (0.0-0.2) 08/18/17 04:11 Absolute Neuts (auto) 3.59 10^3/uL (1.70-6.50) 08/18/17 04:11 Absolute Lymphs (auto) 0.48 10^3/uL (1.00-3.00) L 08/18/17 04:11 Absolute Monos (auto) 0.45 10^3/uL (0.30-0.80) 08/18/17 04:11 Absolute Eos (auto) 0.08 10^3/uL (0.03-0.40) 08/18/17 04:11 Absolute Basos (auto) 0.01 10^3/uL (0.02-0.10) L 08/18/17 04:11 Absolute Nucleated RBC 0.00 10^3/uL (0-0.01) 08/18/17 04:11 Immature Gran % 0.6 % (0.0-1.1) 08/18/17 04:11 Immature Gran # 0.03 10^3/uL (0.00-0.10) 08/18/17 04:11 PT 37.7 SEC (12.0-15.0) H 08/18/17 04:11 INR 3.88 (0.83-1.16) H 08/18/17 04:11 Sodium 139 mEq/L (134-144) 08/18/17 04:11 Potassium 4.8 mEq/L (3.5-5.2) 08/18/17 04:11 Chloride 106 mEq/L (97-110) 08/18/17 04:11 Carbon Dioxide 24 mEq/l (22-31) 08/18/17 04:11 Anion Gap 9 mEq/L (8-16) 08/18/17 04:11 BUN 47 mg/dL (7-23) H 08/18/17 04:11 Creatinine 1.9 mg/dL (0.7-1.3) H 08/18/17 04:11 Estimated GFR 34 08/18/17 04:11 Glucose 88 mg/dL (70-100) 08/18/17 04:11 Uric Acid 11.3 mg/dL (3.5-8.5) H 08/18/17 04:11 Calcium 8.0 mg/dL (8.5-10.4) L 08/18/17 04:11 Phosphorus 3.8 mg/dL (2.5-4.5) 08/18/17 04:11 Total Bilirubin 0.5 mg/dL (0.1-1.4) D 08/18/17 04:11 AST 64 IU/L (17-59) H 08/18/17 04:11 ALT 94 IU/L (21-72) H 08/18/17 04:11 Alkaline Phosphatase 217 IU/L (38-126) H 08/18/17 04:11 Lactate Dehydrogenase 701 IU/L (313-618) H 08/18/17 04:11 Troponin I 0.025 ng/mL (0.000-0.034) 08/17/17 22:00 NT-Pro-B Natriuret Pep 6770 pg/mL (0-450) H 08/17/17 16:30 Total Protein 7.2 g/dL (6.3-8.2) 08/18/17 04:11 Albumin 2.9 g/dL (3.5-5.0) L 08/18/17 04:11 C. difficile Tox (PCR) NEGATIVE (NEGATIVE) 08/18/17 14:30 Laboratory Tests 07/07/15 08/14/17 08/17/17 18:00 09:51 16:30 NT-Pro-B Natriuret Pep 1550 H 1980 H 6770 H Troponin I 0.030 08/17/17 22:00 NT-Pro-B Natriuret Pep Troponin I 0.025 Visualized and Interpreted Chest x-ray results: Yes Chest X-ray Interpretation: no infiltrate, other (Dual-chamber pacemaker) Visualized and Interpreted EKG results: Yes EKG additional interpertation: Atrial pacing at, intact AV conduction, normal appearing QRS complex. Telemetry: Normal sinus rhythm. Echocardiogram: There is a full and separately dictated ECHO report. His echocardiogram demonstrates normal left ventricular size and systolic function, a moderately dilated, moderately hypokinetic right ventricle with severe pulmonary artery hypertension with an RVSP above 80 mmHg. This is associated with moderate to severe tricuspid regurgitation at least moderate right atrial enlargement. There is no pericardial effusion. There are no left ventricular wall motion abnormalities. There is no significant left-sided valvular disease. He had a previous echocardiogram in September of this year. At that time his ejection fraction was 65% with an RVSP of 48 mmHg. Right-sided chambers were within normal limits. 09/28/2016: He had an MVO2 study with a peak MVO2 of 18.8. PFTs were noted to be "restricted." A/P Assessment: This is an 82-year-old male typically followed by Dr. Lex Davis as an outpatient with a cardiac history significant for paroxysmal atrial fibrillation , sick sinus syndrome and previous dual-chamber pacemaker implantation. He has had progressive symptoms of exertional dyspnea now for at least a year. At this point he is [place] heart [employer] functional class 3. He has no symptoms of angina. He received chemotherapy on Monday given his history of Waldentrom's macroglobulinemia. He has had no acute change in his symptoms of dyspnea however it was noted that his brain atretic peptide was elevated. On August 14 his brain atretic peptide was 1980. Today, his brain atretic peptide measures 6770. His echocardiogram is consistent with severe pulmonary hypertension and right-sided heart failure. This is noted in the absence of significant left-sided heart disease. He has been fully anticoagulated given his history of atrial fibrillation. This certainly does make the likelihood of chronic pulmonary thromboembolic disease fairly low. His malignancy does put him at a little bit higher risk. There have been reported cases of hyperviscosity syndrome in the setting of Waldenstrom's macroglobulinemia precipitating significant pulmonary hypertension. He has been a lifelong nonsmoker. He states that he does have a history of sleep apnea although has never been told that this is severe. Certainly this could be aggravated by his chronic benzodiazepine/narcotic use. Plan: 1. I have ordered a V/Q scan to evaluate for chronic pulmonary thromboembolic disease. 2. I would like him to have a full set of pulmonary function tests to include measurement of his lung volumes and diffusion capacity. 3. I ordered a room air blood gas. 4. Depending on the above results, a full outpatient sleep study can be performed. 5. I think it would be reasonable to have pulmonology involved. He can be referred for further evaluation possibly in the outpatient setting. 6. His sotalol and Coumadin should be continued. His INR today is supratherapeutic. His Coumadin can be held today. 7. We will follow along with you.
[2017-08-18] MEDS: ASPIRIN 81 MG CHEWABLE TAB PO SCH (21:15)
[2017-08-18] MEDS: TEMAZEPAM 15 MG CAP PO PRN (21:15)
[2017-08-18] MEDS: PRAVASTATIN SODIUM 20 MG TAB PO SCH (21:16)
--- NOTE | 2017-08-18 22:21 | SOAPPROG ---
SOAP Progress Note Assessment/Plan: A/P: * Chronic dyspnea. * Fatigue. * Waldenstrom's: C1D5 Rituxan/carfilzomib. * Anemia: likely multifactorial (Waldenstrom's, CRI). * Remote Stage II colon cancer. * Remote anal cancer. Review of ECHO with Dr. Conti demonstrates PHTN and RV dysfunction, which are the likely cause of his sxs. There is no real evidence to support Waldenstrom' s or his recent chemotherapy. Carfilzomib can be a/w cardiac dysfunction, but his sxs precede administration. Will follow along. Can consider Aranesp for his anemia if persistently remains <10. 08/18/17 22:17 Subjective: No change in chronic dyspnea and fatigue. He is very clear there has been no change this week (chemo 08/14 and 08/15). Non-productive cough for quite awhile. No pleurisy. No LE edema. O: VS reviewed. Gen: fatigued-appearing, NAD. Lungs: CTA. CV: no edema. Laboratory Tests 08/18/17 08/18/17 04:11 04:11 WBC 4.64 Hgb 9.5 L Plt Count 155 Sodium 139 Potassium 4.8 Chloride 106 Carbon Dioxide 24 Anion Gap 9 BUN 47 H Creatinine 1.9 H Estimated GFR 34 Glucose 88 Objective: Vital Signs Temp Pulse Resp BP Pulse Ox 36.7 C 80 19 114/67 94 08/18/17 19:32 08/18/17 21:15 08/18/17 19:32 08/18/17 21:15 08/18/17 19:32 Microbiology 08/17/17 20:35 Respiratory Panel (PCR) - Final Nasal, Sinus - Swab No Organism Detected Laboratory Results 08/18/17 04:11 08/18/17 04:11 08/17/17 08/18/17 08/19/17 05:59 05:59 05:59 Intake Total 400 700 Balance 400 700 PT 37.7 SEC (12.0-15.0) H 08/18/17 04:11 INR 3.88 (0.83-1.16) H 08/18/17 04:11 ICD10 Worksheet Patient Problems: Problems Problem Status Onset Dyspnea Acute Anxiety Acute Arrhythmia, ok Acute Atrial fibrillation and flutter Acute CHF (congestive heart failure) Acute Hypoxia Acute Pulmonary edema Acute Chronic kidney disease (CKD) stage G3a/A1, moderately decreased glomerular filtration rate (GFR) between 45-59 mL/min/1.73 square meter and albuminuria creatinine ratio less than 30 mg/g Chronic Malignant lymphoma, 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
[2017-08-19] MEDS: IPRATROPIUM/ALBUTEROL 3 ML DEYVIAL IH SCH ×4 (05:57→20:47)
[2017-08-19] MEDS: HEPARIN 5,000 UNIT/0.5 ML SYR SC SCH ×2 (06:06→14:48)
[2017-08-19] MEDS: LEVOTHYROXINE 50 MCG TAB PO SCH (06:06)
[2017-08-19 08:17] LABS: HEMOGLOBIN 10.8 g/dL (13.7-17.5); MEAN CELL HEMOGLOBIN 25.3 pg (27.9-34.1); MEAN CELL HEMOGLOBIN CONCENTR. 30.9 g/dL (32.4-36.7); RED BLOOD CELL COUNT 4.27 10^6/uL (4.40-6.38); RED CELL DISTRIBUTION WIDTH 16.7 % (11.5-15.2)
[2017-08-19 08:27] LABS: INR 2.76 (0.83-1.16); PROTIME(PATIENT) 29.1 SEC (12.0-15.0)
[2017-08-19 08:39] LABS: ALANINE AMINOTRANSFERASE 134 IU/L (21-72); ALBUMIN 3.2 g/dL (3.5-5.0); ALKALINE PHOSPHATASE 313 IU/L (38-126); ANION GAP 13 mEq/L (8-16); ASPARTATE AMINOTRANSFERASE 83 IU/L (17-59); BILIRUBIN,TOTAL 0.6 mg/dL (0.1-1.4); CALCIUM 8.1 mg/dL (8.5-10.4); CARBON DIOXIDE 23 mEq/l (22-31); CHLORIDE 106 mEq/L (97-110); CREATININE 1.6 mg/dL (0.7-1.3); GLOMERULAR FILTRATION RATE 42; GLUCOSE 100 mg/dL (70-100); POTASSIUM 4.7 mEq/L (3.5-5.2); SODIUM 142 mEq/L (134-144); TOTAL PROTEIN 7.6 g/dL (6.3-8.2)
[2017-08-19] MEDS: FERROUS SULFATE 325 MG TAB PO SCH (08:45)
[2017-08-19] MEDS: ACYCLOVIR 400 MG TAB PO SCH ×2 (08:45→20:26)
[2017-08-19] MEDS: DAPSONE 100 MG TAB PO SCH (08:45)
[2017-08-19] MEDS: ALLOPURINOL 100 MG TAB PO SCH (08:45)
[2017-08-19] MEDS: CHOLECALCIFEROL VIT D3 2,000 UNITS TAB/CAP PO SCH (08:45)
[2017-08-19] MEDS: SOTALOL HCL 80 MG TAB PO SCH ×2 (08:47→20:27)
[2017-08-19] MEDS: cycloSPORINE 0.05% 30 DROPERETTE/BOX EACHEYE SCH (08:48)
[2017-08-19 09:14] LABS: BASE EXCESS -1.4 mEq/L (-2.5-2.5); BICARBONATE 22 mEq/L (22-26); MEASURED OXYGEN SATURATION 90 % (92-95); PCO2 32 mmHg (34-38); TCO2 23 mEq/L (23-27)
[2017-08-19 09:15] LABS: PO2 58 mmHg (65-75)
--- NOTE | 2017-08-19 09:47 | SOAPPROG ---
SOAP Progress Note Assessment/Plan: Assessment: 82 y/o man with PAF, SSS s/p remote PPM, previous colo-rectal CA, Waldenstrom's macroglobenima and new severe pulmonary HTN with right sided CHF. His echo is not consistent with cardiac amyloidosis. I think the wilks is to figure out the etiology of his severe pulmonary HTN and treat and RV will start to work better. He stopped tobacco use 60yrs ago and only has 10pk/yr smoking. He is a little hypervolemic with most of excess fluid in abdomen. REC: 1)start Demadex 40mg PO qam. 2)start Aldactone 25mg PO qam. 3)labs in AM (BMP and BNP level). 4)await V/Q scan, ABG and PFT results and would do formal consult with Pulmonary Medicine today. 5)from cardiac standpoint could probably go home Monday evening or Monday with follow CHF-Blois 2-3 weeks. 08/19/17 09:43 Subjective: He has intermittent random shortness of breath at rest with O2 sats dropping to 75%. Denies CP, palpitations or syncope. [place] at 1 block. Objective: Vital Signs Temp Pulse Resp BP Pulse Ox 36.9 C 72 20 117/52 L 91 L 08/19/17 07:36 08/19/17 09:14 08/19/17 07:36 08/19/17 08:47 08/19/17 07:36 Microbiology 08/17/17 20:35 Respiratory Panel (PCR) - Final Nasal, Sinus - Swab No Organism Detected Laboratory Results 08/19/17 08:00 08/19/17 08:00 08/18/17 08/19/17 08/20/17 05:59 05:59 05:59 Intake Total 400 700 Balance 400 700 PT 29.1 SEC (12.0-15.0) H D 08/19/17 08:00 INR 2.76 (0.83-1.16) H 08/19/17 08:00 Physical Exam - Physical Exam General Appearance: alert EENT: normal ENT inspection Neck: non-tender Respiratory: rales (rare crackles bases. No wheezes) Cardiac/Chest: regular rate, rhythm, gallop, JVD, systolic murmur Peripheral Pulses: 2+: carotid (R), carotid (L), femoral (R), femoral (L), dorsalis-pedis (R), dorsalis-pedis (L) Abdomen: non-tender, organomegaly, splenomegaly, No guarding Skin: warm/dry Extremities: No pedal edema Neuro/Psych: alert ICD10 Worksheet Patient Problems: Problems Problem Status Onset Dyspnea Acute Anxiety Acute Arrhythmia, ok Acute Atrial fibrillation and flutter Acute CHF (congestive heart failure) Acute Hypoxia Acute Pulmonary edema Acute Chronic kidney disease (CKD) stage G3a/A1, moderately decreased glomerular filtration rate (GFR) between 45-59 mL/min/1.73 square meter and albuminuria creatinine ratio less than 30 mg/g Chronic Malignant lymphoma, 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
[2017-08-19] MEDS: TORSEMIDE 20 MG TAB PO SCH (11:35)
[2017-08-19] MEDS: SPIRONOLACTONE 25 MG TAB PO SCH (11:35)
--- NOTE | 2017-08-19 15:01 | SOAPPROG ---
SOAP Progress Note Assessment/Plan: E&M for Wladenstroms * Waldenstroms: C1D6 rituximab/carfilzomib. Both disease and therapy can cause fatigue although little early with the chemo. * Anemia: due to cancer, renal disease, +/- chemo * Pulmonary HTN with RV dysfunction: work up by cardiology in process. Definitely can cause fatigue and dyspnea. Pre-treat PET showed edema in ant. superior mediastinal fat, right anterior chest wall, right retrocrural space and mesentery with low-level uptake of uncertain significance. Also showed small bilateral pleural effusions. * Remote Stage II colon cancer. * Remote anal cancer. Subjective: No new complaints Objective: Vital Signs Temp Pulse Resp BP Pulse Ox 36.8 C 74 18 114/56 L 92 08/19/17 12:00 08/19/17 12:43 08/19/17 12:43 08/19/17 12:00 08/19/17 12:43 Laboratory Results 08/19/17 08:00 08/19/17 08:00 08/18/17 08/19/17 08/20/17 05:59 05:59 05:59 Intake Total 400 700 Balance 400 700 PT 29.1 SEC (12.0-15.0) H D 08/19/17 08:00 INR 2.76 (0.83-1.16) H 08/19/17 08:00 Physical Exam - Physical Exam Respiratory: crackles Cardiac/Chest: regular rate, rhythm, systolic murmur Abdomen: soft ICD10 Worksheet Patient Problems: Problems Problem Status Onset Dyspnea Acute Anxiety Acute Arrhythmia, ok Acute Atrial fibrillation and flutter Acute CHF (congestive heart failure) Acute Hypoxia Acute Pulmonary edema Acute Chronic kidney disease (CKD) stage G3a/A1, moderately decreased glomerular filtration rate (GFR) between 45-59 mL/min/1.73 square meter and albuminuria creatinine ratio less than 30 mg/g Chronic Malignant lymphoma, 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
--- NOTE | 2017-08-19 15:03 | HOSPPROG ---
Hospitalist Progress Note Assessment/Plan: Acute hypoxemic respiratory failure - On 0-2 LPM. Trop neg x2. Likely secondary to newly diagnosed right heart failure and pulmonary hypertension -will likely need home O2 with occasional desaturations to the 70's Acute right heart failure - Cardiology consult appreciated -starting torsemide and aldactone -follow bmp Pulmonary hypertension - new since 09/2016 echo, RSVP 82. Potential etiologies include underlying lung dz (+e/o restrictive dz on PFT's here). Doubt underlying thromboembolic dz with supratherapeutic INR and neg LE u/s. Also consider a myeloproliferative disorder with his h/o lymphoma. Discussed with Pulm, who will consult today. -V/Q scan to r/o thromboembolic dz -ABG on room air today -f/u pulm recs CKD - Cr back to baseline ~1.6 from 2.1 on arrival -follow closely with addition of diuretic therapy Elevated LFT's - ?hepatic congestion with new right HF. Hepatitis panel neg. -trend lft's with initiation of diuresis. If remain elevated, consider u/s vs CT for further evaluation -no evidence of hepatic mets on recent bone scan A fib - Rate controlled on Sotalol. 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 Some swelling in his abdomen. No CP. No LE edema. Objective: Vital Signs Temp Pulse Resp BP Pulse Ox 36.8 C 74 18 114/56 L 92 08/19/17 12:00 08/19/17 12:43 08/19/17 12:43 08/19/17 12:00 08/19/17 12:43 Laboratory Results 08/19/17 08:00 08/19/17 08:00 08/18/17 08/19/17 08/20/17 05:59 05:59 05:59 Intake Total 400 700 Balance 400 700 PT 29.1 SEC (12.0-15.0) H D 08/19/17 08:00 INR 2.76 (0.83-1.16) H 08/19/17 08:00 - Physical Exam Constitutional: no apparent distress Eyes: PERRL Ears, Nose, Mouth, Throat: moist mucous membranes Cardiovascular: regular rate and rhythym Respiratory: no respiratory distress, clear to auscultation Gastrointestinal: normoactive bowel sounds, soft, non-tender abdomen, other (+ mild abdominal distention / edema) Skin: warm Musculoskeletal: full muscle strength Neurologic: AAOx3 Psychiatric: interacting appropriately ICD10 Worksheet Patient Problems: Problems Problem Status Onset Dyspnea Acute Anxiety Acute Arrhythmia, ok Acute Atrial fibrillation and flutter Acute CHF (congestive heart failure) Acute Hypoxia Acute Pulmonary edema Acute Chronic kidney disease (CKD) stage G3a/A1, moderately decreased glomerular filtration rate (GFR) between 45-59 mL/min/1.73 square meter and albuminuria creatinine ratio less than 30 mg/g Chronic Malignant lymphoma, 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
[2017-08-19] MEDS ORDERED: WARFARIN SODIUM 2.5 MG TAB PO ONE (16:00)
--- NOTE | 2017-08-19 18:10 | PDCONSULT ---
Military Technology Manager Note: Patient seen and examined, history obtained. Full consult to follow. Assessment: Severe pulmonary hypertension: Estimated right ventricular systolic pressure is 80. Associated with increasing shortness of breath/dyspnea on exertion over the last year, more so over last several months, and worse over the last few weeks. He had right ventricular systolic pressures by echo almost a year ago of approximately 50, so clearly comma pulmonary hypertension was present at that time and has progressed. This is associated with a moderate restrictive defect on spirometry with the forced vital capacity being 60% of predicted. There is little response to bronchodilator. He has associated hypoxemia with a room air PO2 on blood gas of 58. V/Q scan done today is negative for perfusion defects. He is at little risk for thromboembolic disease secondary to full-dose systemic anticoagulation over the last 2 years. A PET scan was done at [facility] several days ago. Apparently there are some abnormalities on the CT portion of this. However, I have not yet seen this study. I suspect that his pulmonary hypertension is going to be related to his lymphoma /macroglobulinemia and/or is its treatments. Other pathologies on the differential including subtle interstitial disease, pulmonary vascular disease, etc. I do not believe that sleep apnea is playing a role, but further evaluation for this may be needed. Recommendations: A high-resolution CT angiogram of the chest will be performed tomorrow morning. He would very much like to go home. I think he can go home tomorrow on supplemental oxygen. Further evaluation can be accomplished as an outpatient. All the above was discussed with the patient and his .
[2017-08-19] MEDS: PRAVASTATIN SODIUM 20 MG TAB PO SCH (20:26)
[2017-08-19] MEDS: ASPIRIN 81 MG CHEWABLE TAB PO SCH (20:27)
[2017-08-19] MEDS: TEMAZEPAM 15 MG CAP PO PRN (21:36)
[2017-08-20] MEDS: IPRATROPIUM/ALBUTEROL 3 ML DEYVIAL IH SCH ×2 (00:06→10:51)
[2017-08-20] MEDS: cycloSPORINE 0.05% 30 DROPERETTE/BOX EACHEYE SCH ×2 (01:02→08:25)
[2017-08-20] MEDS: LEVOTHYROXINE 50 MCG TAB PO SCH (06:00)
[2017-08-20 06:56] LABS: ANION GAP 13 mEq/L (8-16); CALCIUM 8.7 mg/dL (8.5-10.4); CARBON DIOXIDE 28 mEq/l (22-31); CHLORIDE 102 mEq/L (97-110); GLOMERULAR FILTRATION RATE 32; GLUCOSE 93 mg/dL (70-100); POTASSIUM 4.7 mEq/L (3.5-5.2); SODIUM 143 mEq/L (134-144)
[2017-08-20 06:58] LABS: INR 1.78 (0.83-1.16); PROTIME(PATIENT) 20.8 SEC (12.0-15.0)
[2017-08-20 07:18] VITALS: BP 124/68; TEMP 98
[2017-08-20] MEDS: CHOLECALCIFEROL VIT D3 2,000 UNITS TAB/CAP PO SCH (08:21)
[2017-08-20] MEDS: SPIRONOLACTONE 25 MG TAB PO SCH ×2 (08:22→08:27)
[2017-08-20] MEDS: ACYCLOVIR 400 MG TAB PO SCH (08:23)
[2017-08-20] MEDS: DAPSONE 100 MG TAB PO SCH (08:23)
[2017-08-20] MEDS: SOTALOL HCL 80 MG TAB PO SCH (08:23)
[2017-08-20] MEDS: ALLOPURINOL 100 MG TAB PO SCH (08:23)
[2017-08-20] MEDS: FERROUS SULFATE 325 MG TAB PO SCH (08:24)
--- NOTE | 2017-08-20 08:37 | SOAPPROG ---
SOAP Progress Note Assessment/Plan: Assessment: 82 y/o man with PAF, SSS s/p remote PPM, previous colo-rectal CA, Waldenstrom's macroglobenima and new severe pulmonary HTN with right sided CHF. His echo is not consistent with cardiac amyloidosis. I think the wilks is to figure out the etiology of his severe pulmonary HTN and treat and RV will start to work better. He stopped tobacco use 60yrs ago and only has 10pk/yr smoking. He is near euvolemic. REC: 1)decrease Aldactone to 12.5mg PO qam because of his CRI 2)rest of cardiac meds without changes. 3)after CT chest probably discharge home. 4)out pt labs in seven days (BMP and BNP level).....my office will arrange on Monday 5)f/u CHF-[place] in 7-10 days. He could go home from cardiac standpoint today on supplemental O2. 08/20/17 08:35 Subjective: maybe a little less [place] and abdominal distension. No CP or near syncope or palpitations. Objective: Vital Signs Temp Pulse Resp BP Pulse Ox 36.7 C 73 14 124/68 H 92 08/20/17 07:17 08/20/17 07:17 08/20/17 07:17 08/20/17 07:17 08/20/17 07:17 Laboratory Results 08/19/17 08:00 08/20/17 06:20 08/19/17 08/20/17 08/21/17 05:59 05:59 05:59 Intake Total 700 Balance 700 PT 20.8 SEC (12.0-15.0) H D 08/20/17 06:20 INR 1.78 (0.83-1.16) H 08/20/17 06:20 Physical Exam - Physical Exam General Appearance: alert EENT: normal ENT inspection Neck: non-tender Respiratory: lungs clear Cardiac/Chest: regular rate, rhythm, systolic murmur (1/6 LUZMA heard), No gallop Peripheral Pulses: 2+: carotid (R), carotid (L), femoral (R), femoral (L), dorsalis-pedis (R), dorsalis-pedis (L) Abdomen: non-tender, No rebound Skin: warm/dry Extremities: No pedal edema Neuro/Psych: oriented x 3 ICD10 Worksheet Patient Problems: Problems Problem Status Onset Dyspnea Acute Anxiety Acute Arrhythmia, ok Acute Atrial fibrillation and flutter Acute CHF (congestive heart failure) Acute Hypoxia Acute Pulmonary edema Acute Chronic kidney disease (CKD) stage G3a/A1, moderately decreased glomerular filtration rate (GFR) between 45-59 mL/min/1.73 square meter and albuminuria creatinine ratio less than 30 mg/g Chronic Malignant lymphoma, 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
--- NOTE | 2017-08-20 09:30 | PDHOMEO2F ---
Home Oxygen Face to Face Home Orders: I certify that a physician or a nurse practitioner or physician's exceptional children teacher assistant has had a [id number] encounter with this patient on the date of this order due to the diagnosis listed, which relates to the primary reason the patient requires home oxygen. Alternative treatments have been tried, or considered, and deemed ineffective. It is anticipated that supplemental oxygen will result in improvement with treatment. Home oxygen qualifying diagnosis: pulmonary hypertension, right heart failure SpO2 on room air (%): 85 Frequency of home oxygen needed: continuous Home oxygen liters per minute: 1-2 LPM Home oxygen delivery device: nasal cannula Concentrator: Yes E-tanks for mobility and back up: Yes If ordering portable O2, is the patient mobile in the home?: Yes I certify that, based on these findings, the home oxygen is medically necessary for this patient for the following length of time. Length of time home oxygen needed: 99 years
[2017-08-20 11:00] VITALS: PULSE 72; RESP 16; O2SAT 92
[2017-08-20] MEDS: TORSEMIDE 20 MG TAB PO SCH (11:23)
--- NOTE | 2017-08-20 12:22 | ASDISCHSUM ---
Discharge Information Plan Status:Home with DME or Oxygen Medically Cleared to Leave:08/19/2017 Discharge Date:08/20/2017 11:47 AM CM D/C Disposition:Home, Routine, Self-Care ADT D/C Disposition:Home, Routine, Self-Care Projected Discharge Date:08/20/2017 11:47 AM Transportation at D/C:Family Discharge Delay Reason: Follow-Up Date:08/20/2017 11:47 AM Discharge Slot: Final Diagnosis: Placement Information Patient Contact Information Contact Name:ANJU Relationship: Address:[address] Work Phone: City:[place] Alternate Phone: [facility]/Zip Code:[place] [address] Email: Financial Information Financial Class: Primary Plan Desc:MEDICARE INPATIENT Primary Plan Number:[id number] Secondary Plan Desc:MAIL [employer]ERS Secondary Plan Number:[id number] Assessment Information [facility] CM Progress Note CM Note CM Note Notes: Chart reviewed. Patient admitted via ED with increasing SOB. He has a murmur and tests are pending. Visited with patient and his . He has a history of lymphoma. Per patient and his they have no needs at this point in time. CM to follow. Date Signed: 08/18/2017 03:28 PM Electronically Signed By:Yenny Garcia RN Case Management Discharge Plan Note Case Management Discharge Discharge Order Complete? Answers: Yes Patient to Obtain Answers: Independently Medications Transportation Arranged Answers: Family/Friends Family Notified Answers: Yes Date Signed: 08/20/2017 10:38 AM Electronically Signed By:Yenny Garcia RN Intervention Information
--- NOTE | 2017-08-20 12:24 | SOAPPROG ---
SOAP Progress Note Assessment/Plan: E&M for Waldenstrom * Waldenstroms: C1D7 rituximab/carfilzomib. Both disease and therapy can cause fatigue although little early to be from the chemo. * Anemia: due to cancer, renal disease, +/- chemo * Pulmonary HTN with RV dysfunction: work up by cardiology in process. Definitely can cause fatigue and dyspnea. No clear etiology. 2 small lung nodules but recent PET negative for lung masses. * Remote Stage II colon cancer. * Remote anal cancer. Subjective: No new complaints Objective: Vital Signs Temp Pulse Resp BP Pulse Ox 36.7 C 72 16 124/68 H 92 08/20/17 07:17 08/20/17 10:57 08/20/17 10:57 08/20/17 07:17 08/20/17 10:57 Laboratory Results 08/19/17 08:00 08/20/17 06:20 08/19/17 08/20/17 08/21/17 05:59 05:59 05:59 Intake Total 700 Balance 700 PT 20.8 SEC (12.0-15.0) H D 08/20/17 06:20 INR 1.78 (0.83-1.16) H 08/20/17 06:20 EXAM DONE: PET/CT FINDINGS CHEST: There is physiologic right and left ventricular myocardial activity. There is a small right pleural effusion and a trace left pleural effusion with some very low-level activity. There has also been development of soft tissue fullness in the right retrocrural space on image 118 measuring 2.5 x 2.9 cm, although the uptake is no more than that seen involving the posterior pleural compartments. There is no axillary adenopathy. There is some mild edema seen along the anterior- superior mediastinum, for example on image 93 with some low-level activity which is similar to myocardial blood pool. There is some loss of adipose attenuation along the right chest wall again with some low-level activity (peak SUV of 1.3 on image 105, for example). There is also some nodularity near the confluence of pulmonary vasculature in the inferior right upper lobe on images 82, 84, 89, and 91 with some very low-level activity with a peak SUV of 1.0 but different in appearance than the previous CT corollary images in 2010. There are some dependent atelectatic changes seen posteriorly in the lower lobes, with some peribronchial thickening. ABDOMEN AND PELVIS: Since the previous study, the spleen has enlarged, currently measuring 14.2 cm (cephalocaudal diameter) x 14.5 x 6.1 cm ( transverse diameter), previously measuring 10.1 x 11.9 x 4.3 cm. There is also increased global radiotracer uptake throughout the spleen with a peak SUV of 2.4 compared with the liver, which has a peak SUV of 1.9. The uptake in the liver and spleen were the same on the 2010 study. There is some edema of the right retrocrural adipose right at the thoracoabdominal junction. There is no pathologically-enlarged retroperitoneal adenopathy. However, there is some higher attenuation of the mesenteric adipose, for example extending along the right paracolic gutter on images 165-180. There is normal uptake within the renal collecting systems and urinary bladder. IMPRESSION: 1. Edema of the anterior-superior mediastinal fat, right anterior chest wall, posterior subcutaneous adipose, right retrocrural space, and mesentery, each with some low-level activity of uncertain significance. 2. Interval development of small bilateral pleural effusions, right greater than left, with some very low-level activity. 3. Interval splenic enlargement with asymmetric uptake diffusely compared to the liver, new since 2010. 4. Low-level activity associated with some areas of inferior right upper lobe ( of the lung) vascular confluence, findings which are new from 2010. Consider follow-up CT reevaluation in four to six months. Interpreted and electronically signed by: Cody Erazo M.D. [facility] CT Scan of the Chest (Without Contrast - High Resolution) Impression: 1. No interstitial lung disease or underlying pneumonia 2. Chronic basilar bronchitis. 3. New cardiomegaly with chronic coronary artery disease and new bilateral pleural effusions, but without vascular plethora. 4. 2 new irregular posterior right upper lobe nodules. The largest would be amenable to PET CT evaluation, if clinically indicated. The lesions are likely too small for successful needle biopsy. At a minimum, short interval CT follow-up is recommended. Dictated By: Pako Gao MD Nuclear Medicine Ventilation/Perfusion Lung Scan Impression: Low probability of pulmonary embolus. Dictated By: William Johns MD Physical Exam - Physical Exam General Appearance: no apparent distress Respiratory: crackles Cardiac/Chest: regular rate, rhythm, systolic murmur ICD10 Worksheet Patient Problems: Problems Problem Status Onset Anxiety Acute Arrhythmia, ok Acute Atrial fibrillation and flutter Acute CHF (congestive heart failure) Acute Dyspnea Acute Hypoxia Acute Pulmonary edema Acute Chronic kidney disease (CKD) stage G3a/A1, moderately decreased glomerular filtration rate (GFR) between 45-59 mL/min/1.73 square meter and albuminuria creatinine ratio less than 30 mg/g Chronic Malignant lymphoma, 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
--- NOTE | 2017-08-21 02:53 | GDS ---
[f rep st] DISCHARGE SUMMARY DISCHARGE DIAGNOSES: 1. Acute hypoxemic respiratory failure secondary to right heart failure and pulmonary hypertension. 2. Acute right heart failure. 3. Severe pulmonary hypertension. 4. Chronic kidney disease. 5. Elevated liver enzymes thought secondary to hepatic congestion in the setting of right heart fail ure. 6. Atrial fibrillation. 7. Waldenstrom lymphoma. 8. Tumor lysis syndrome, improved. 9. Tachy-phoebe syndrome with the presence of a pacemaker. CONSULTANTS: 1. Dr. Fadi smith, Cardiology. 2. Dr. Chase Rivas, Pulmonology. 3. Dr. Amira Crawford, Oncology. HISTORY: For details, please see dictated history and physical dated August 17, 2017. In brief, t he patient is an 82-year-old male with a history of Waldenstrom lymphoma, who recently received chemo , as well as atrial fibrillation on anticoagulation, and chronic kidney disease, who was admitted to the hospital from the Oncology Clinic with dyspnea. HOSPITAL COURSE: Patient was admitted to the cardiac telemetry unit. Echocardiogram revealed modera tely reduced right ventricular function with a right ventricular systolic pressure of 82. This is a significant change from his prior echocardiogram in July of 2015, at which time he had normal rig ht ventricular systolic pressure. Consideration was given to thromboembolic disease. However, he pr esented with a supratherapeutic INR of 4.8. A lower extremity venous Doppler was negative for DVT, a nd a v/Q scan showed low probability of pulmonary embolism. He was started on diuretic therapy for h is acute right heart failure. It is noted his LFTs were elevated, though it is suspected this is lik [place] secondary to hepatic congestion in the setting of acute right heart failure. He had a negative h epatitis panel. There was no evidence of hepatic metastases on his most recent bone scan. In additi on, he was noted to have an elevated uric acid and was treated with allopurinol for presumed tumor ly sis syndrome after recent chemotherapy was administered. His BUN and creatinine did increase on the day of admission after initiation of Aldactone and Demadex. He was discharged on a lower dose of Ald actone, per Cardiology recommendations, and he will have followup with Cardiology in 1 week for a rep eat basic metabolic panel. The etiology of his pulmonary hypertension remains unclear, though there is suspicion for this possibly being related to his lymphoma and macroglobulinemia and/or its treatme nts. A high-resolution chest CT was performed on the day of discharge, showed no evidence of interst itial lung disease with chronic basilar bronchitis, new cardiomegaly with bilateral pleural effusions , and 2 new irregular posterior right upper lobe nodules. Patient has required 1-2 L of oxygen and i s discharged home with home oxygen. With respect to his anticoagulation, his Coumadin was held for 2 days given his supratherapeutic INR. His INR is down to 1.78 on the day of discharge. He is discha rged home back on his Coumadin 1.25 mg daily, and he will have a repeat INR drawn in 2 days with furt her dose adjustments per the Anticoagulation Clinic. His dose is reduced due to him presenting with an INR 4.8 on his current regimen. He had no evidence of bleeding. The patient strongly desired to have ongoing workup and evaluation in the outpatient setting and is therefore discharged home in stab le condition. FOLLOWUP: 1. Dr. Gautam Soto, [facility]. 2. Dr. Lucas Cornell, Pulmonology. 3. Dr. Edwar Rush, Cardiology. 4. INR in 2 days and follow up with the Anticoagulation Clinic. 5. Basic metabolic panel in 1 week with adjustments of his diuretic therapy per Cardiology. DISCHARGE MEDICATIONS: Please see [address] for complete updated outpatient medication list. New med ications on discharge include spironolactone 12.5 mg p.o. daily, #30, no refills; torsemide 40 mg p.o . daily, #30, no refills. Discontinued medications: Lasix. Changed medications: His warfarin dose was changed to 1.25 mg p.o. daily. He will continue all othe r outpatient medications as previously prescribed. /[id number]/MODL
[2017-08-21 07:40] LABS: IG KAPPA FREE LIGHT CHAIN 7.95 mg/dL; IG LAMBDA FREE LIGHT CHAIN 0.991 mg/dL; KAPPA/LAMBDA RATIO 8.02
[2017-08-21] MEDS ORDERED: SPIRONOLACTONE 25 MG TAB PO SCH (09:00)
== END 2017-08-20 11:47 | disposition home or self-care (01) | DRG 314 ==
LOC: F2W 18:24
PROVIDERS: ADMIT Internal Medicine; ATTEND Internal Medicine
DX: I27.29 Other secondary pulmonary hypertension (principal); I50.811 Acute right heart failure; J96.01 Acute respiratory failure with hypoxia; K76.1 Chronic passive congestion of liver; D89.0 Polyclonal hypergammaglobulinemia; C85.90 Non-Hodgkin lymphoma, unspecified, unspecified site; N18.9 Chronic kidney disease, unspecified; E88.3 Tumor lysis syndrome; I48.0 Paroxysmal atrial fibrillation; E03.9 Hypothyroidism, unspecified; K21.9 Gastro-esophageal reflux disease without esophagitis; M06.9 Rheumatoid arthritis, unspecified; Z92.3 Personal history of irradiation; Z79.01 Long term (current) use of anticoagulants; Z87.891 Personal history of nicotine dependence; Z95.0 Presence of cardiac pacemaker
CPT/HCPCS: A9540; A9558; G0472

== ENCOUNTER → 2018-02-01 | Outpatient (CLI) | payer OTHER | LOC: FCPNEURO 21:30 | PROVIDERS: ATTEND Internal Medicine Sleep Medicine | DX: G47.33 Obstructive sleep apnea (adult) (pediatric) (principal); G47.36 Sleep related hypoventilation in conditions classified elsewhere ==